=== PATIENT | male | born 1940 | race Caucasian/White ===

== ENCOUNTER 2016-03-06 11:14 | Inpatient (IN) | payer MEDICARE ==
[~2016-03-06] VITALS: Ht 177.8 cm; Wt 99.8 kg
[2016-03-06] MEDS ORDERED: ZOLPIDEM 5 MG TAB PO PRN (11:20)
[2016-03-06] MEDS ORDERED: GLUCAGON 1 MG VIAL IM PRN (11:20)
[2016-03-06] MEDS ORDERED: SODIUM CHLORIDE 0.9% 1,000 ML IV SCH ×2 (11:20→16:00)
[2016-03-06] MEDS ORDERED: ENOXAPARIN 40 MG/0.4 ML SYR SUBQ SCH (11:20)
[2016-03-06] MEDS: NEB-BUDESONIDE 0.5 MG INH SCH ×3 (11:20→17:27)
[2016-03-06] MEDS ORDERED: BISACODYL EC 5 MG TAB PO PRN (11:20)
[2016-03-06] MEDS ORDERED: ALPRAZOLAM 0.25 MG TAB PO PRN (11:20)
[2016-03-06] MEDS ORDERED: BISACODYL 10 MG SUPP RECTAL PRN (11:20)
[2016-03-06] MEDS ORDERED: ACETAMINOPHEN 325 MG TAB PO PRN (11:20)
[2016-03-06] MEDS ORDERED: DEXTROSE 50% SYRINGE 50 ML IV PRN (11:20)
[2016-03-06] MEDS ORDERED: SALINE FLUSH 10 ML FLUSH PRN (11:20)
[2016-03-06] MEDS ORDERED: NITROGLYCERIN SL 0.4 MG TAB SL SCH (14:05)
[2016-03-06] MEDS: ASPIRIN 81 MG CHEW TAB PO SCH (14:12)
[2016-03-06] MEDS: CHOLECALCIFEROL 1,000 UNITS TAB PO SCH (14:12)
[2016-03-06] MEDS: Ascorbic Acid 500 MG TAB PO SCH (14:12)
[2016-03-06] MEDS: amLODIPine 5 MG TAB PO SCH (14:12)
[2016-03-06] MEDS: FENOFIBRATE 145 MG TAB PO SCH (14:13)
[2016-03-06] MEDS: FLUTICASONE 0.05% NA BTL NARE EACH SCH (14:13)
[2016-03-06] MEDS: ENTRESTO PO SCH ×2 (14:13→21:35)
[2016-03-06 14:20] VITALS: BP_SYST 136; BP_SYST 142; RESP 18; TEMP 98.3; Ht 177.8 cm; Wt 99.8 kg
[2016-03-06] MEDS: CEFTRIAXONE 1 GM in SODIUM CHLORIDE 0.9% 50 ML IV SCH (14:58)
[2016-03-06] MEDS: METHYLPRED SOD SUCC 125 MG/2 ML VIAL IV SCH ×2 (14:59→21:34)
[2016-03-06] MEDS: DUONEB INH SCH ×3 (15:00→23:38)
[2016-03-06] MEDS: AZITHROMYCIN 500 MG in SODIUM CHLORIDE 0.9% 250 ML IV SCH (16:16)
[2016-03-06 17:41] VITALS: RESP 16
[2016-03-06 19:10] VITALS: BP_SYST 109; RESP 20; TEMP 98.5
[2016-03-06] MEDS: SALINE FLUSH 10 ML FLUSH SCH (21:34)
[2016-03-06] MEDS: MONTELUKAST 10 MG TAB PO SCH (21:35)
[2016-03-06] MEDS: Atorvastatin 20 MG TAB PO SCH (21:35)
[2016-03-06] MEDS: NEBIVOLOL 10 MG TAB PO SCH (21:35)
[2016-03-06] MEDS: CLOPIDOGREL 75 MG TAB PO SCH (21:35)
[2016-03-06 23:24] VITALS: BP_SYST 118; RESP 18; TEMP 97.8
[2016-03-07] VITALS (9 sets, daily range): BP systolic 104–126; RESP 18–20; TEMP 97.1–98.3
[2016-03-07] MEDS: DUONEB INH SCH ×6 (03:00→23:30)
[2016-03-07] MEDS: PANTOPRAZOLE 40 MG TAB PO SCH (06:16)
[2016-03-07] MEDS: SODIUM CHLORIDE 0.9% FLUSH BAG 500 ML IV SCH (06:16)
[2016-03-07] MEDS: NEB-BUDESONIDE 0.5 MG INH SCH ×2 (07:38→20:07)
[2016-03-07] MEDS: FLUTICASONE 0.05% NA BTL NARE EACH SCH (08:48)
[2016-03-07] MEDS: SALINE FLUSH 10 ML FLUSH SCH ×2 (08:49→20:59)
[2016-03-07] MEDS: METHYLPRED SOD SUCC 125 MG/2 ML VIAL IV SCH ×2 (08:49→20:57)
[2016-03-07] MEDS: CEFTRIAXONE 1 GM in SODIUM CHLORIDE 0.9% 50 ML IV SCH (08:49)
[2016-03-07] MEDS: KCL CR 8 MEQ TAB PO SCH (08:50)
[2016-03-07] MEDS: Furosemide 20 MG/2 ML VIAL IV SCH (08:50)
[2016-03-07] MEDS: TAMSULOSIN 0.4 MG CAP PO SCH (08:50)
[2016-03-07] MEDS: amLODIPine 5 MG TAB PO SCH (08:50)
[2016-03-07] MEDS: FENOFIBRATE 145 MG TAB PO SCH (08:51)
[2016-03-07] MEDS: ASPIRIN 81 MG CHEW TAB PO SCH (08:51)
[2016-03-07] MEDS: ENTRESTO PO SCH ×2 (08:51→20:58)
[2016-03-07] MEDS: CHOLECALCIFEROL 1,000 UNITS TAB PO SCH (08:51)
[2016-03-07] MEDS: SPIRONOLACTONE 25 MG TAB PO SCH (08:51)
[2016-03-07] MEDS: Ascorbic Acid 500 MG TAB PO SCH (08:52)
[2016-03-07] MEDS: AZITHROMYCIN 500 MG in SODIUM CHLORIDE 0.9% 250 ML IV SCH (09:47)
[2016-03-07] MEDS: MONTELUKAST 10 MG TAB PO SCH (20:58)
[2016-03-07] MEDS: NEBIVOLOL 10 MG TAB PO SCH (20:58)
[2016-03-07] MEDS: CLOPIDOGREL 75 MG TAB PO SCH (20:58)
[2016-03-07] MEDS: Atorvastatin 20 MG TAB PO SCH (20:58)
[2016-03-08] VITALS (10 sets, daily range): BP systolic 102–125; RESP 16–20; TEMP 97.2–98.2
[2016-03-08] MEDS: DUONEB INH SCH ×6 (02:57→22:53)
[2016-03-08] MEDS: PANTOPRAZOLE 40 MG TAB PO SCH (06:30)
[2016-03-08] MEDS: SODIUM CHLORIDE 0.9% FLUSH BAG 500 ML IV SCH (06:30)
[2016-03-08] MEDS: NEB-BUDESONIDE 0.5 MG INH SCH ×2 (07:48→19:08)
[2016-03-08] MEDS: METHYLPRED SOD SUCC 125 MG/2 ML VIAL IV SCH ×2 (08:46→20:11)
[2016-03-08] MEDS: CEFTRIAXONE 1 GM in SODIUM CHLORIDE 0.9% 50 ML IV SCH (08:46)
[2016-03-08] MEDS: Furosemide 20 MG/2 ML VIAL IV SCH (08:46)
[2016-03-08] MEDS: ENTRESTO PO SCH ×2 (08:47→20:09)
[2016-03-08] MEDS: SALINE FLUSH 10 ML FLUSH SCH ×2 (08:47→20:11)
[2016-03-08] MEDS: Ascorbic Acid 500 MG TAB PO SCH (08:47)
[2016-03-08] MEDS: ASPIRIN 81 MG CHEW TAB PO SCH (08:47)
[2016-03-08] MEDS: KCL CR 8 MEQ TAB PO SCH (08:47)
[2016-03-08] MEDS: FLUTICASONE 0.05% NA BTL NARE EACH SCH (08:47)
[2016-03-08] MEDS: FENOFIBRATE 145 MG TAB PO SCH (08:47)
[2016-03-08] MEDS: TAMSULOSIN 0.4 MG CAP PO SCH (08:48)
[2016-03-08] MEDS: amLODIPine 5 MG TAB PO SCH (08:48)
[2016-03-08] MEDS: SPIRONOLACTONE 25 MG TAB PO SCH (08:48)
[2016-03-08] MEDS: CHOLECALCIFEROL 1,000 UNITS TAB PO SCH (08:48)
[2016-03-08] MEDS: AZITHROMYCIN 500 MG in SODIUM CHLORIDE 0.9% 250 ML IV SCH (09:56)
[2016-03-08] MEDS: Atorvastatin 20 MG TAB PO SCH (20:09)
[2016-03-08] MEDS: MONTELUKAST 10 MG TAB PO SCH (20:09)
[2016-03-08] MEDS: CLOPIDOGREL 75 MG TAB PO SCH (20:09)
[2016-03-08] MEDS: NEBIVOLOL 10 MG TAB PO SCH (20:09)
[2016-03-09] VITALS (10 sets, daily range): BP systolic 90–126; RESP 18; TEMP 97.3–98.3
[2016-03-09] MEDS: DUONEB INH SCH ×6 (03:19→23:00)
[2016-03-09] MEDS: PANTOPRAZOLE 40 MG TAB PO SCH (06:02)
[2016-03-09] MEDS: SODIUM CHLORIDE 0.9% FLUSH BAG 500 ML IV SCH (06:02)
[2016-03-09] MEDS: NEB-BUDESONIDE 0.5 MG INH SCH ×2 (07:00→19:40)
[2016-03-09] MEDS: METHYLPRED SOD SUCC 125 MG/2 ML VIAL IV SCH (07:55)
[2016-03-09] MEDS: SALINE FLUSH 10 ML FLUSH SCH ×2 (07:55→20:45)
[2016-03-09] MEDS: Furosemide 20 MG/2 ML VIAL IV SCH (08:03)
[2016-03-09] MEDS: CEFTRIAXONE 1 GM in SODIUM CHLORIDE 0.9% 50 ML IV SCH (08:03)
[2016-03-09] MEDS: TAMSULOSIN 0.4 MG CAP PO SCH (08:06)
[2016-03-09] MEDS: ENTRESTO PO SCH ×2 (08:06→20:43)
[2016-03-09] MEDS: CHOLECALCIFEROL 1,000 UNITS TAB PO SCH (08:06)
[2016-03-09] MEDS: Ascorbic Acid 500 MG TAB PO SCH (08:06)
[2016-03-09] MEDS: FLUTICASONE 0.05% NA BTL NARE EACH SCH (08:06)
[2016-03-09] MEDS: SPIRONOLACTONE 25 MG TAB PO SCH (08:06)
[2016-03-09] MEDS: KCL CR 8 MEQ TAB PO SCH (08:07)
[2016-03-09] MEDS: amLODIPine 5 MG TAB PO SCH (08:07)
[2016-03-09] MEDS: ASPIRIN 81 MG CHEW TAB PO SCH (08:07)
[2016-03-09] MEDS: FENOFIBRATE 145 MG TAB PO SCH (08:07)
[2016-03-09] MEDS: AZITHROMYCIN 500 MG in SODIUM CHLORIDE 0.9% 250 ML IV SCH (09:04)
[2016-03-09] MEDS ORDERED: Furosemide 40 MG/4 ML VIAL IV ONE (09:40)
[2016-03-09] MEDS ORDERED: MISSING DOSE XX ONE (10:25)
[2016-03-09] MEDS ORDERED: KCL CR 10 MEQ CAP PO ONE (12:00)
[2016-03-09] MEDS ORDERED: PREDNISONE 20 MG TAB PO ONE (19:00)
[2016-03-09] MEDS: Atorvastatin 20 MG TAB PO SCH (20:43)
[2016-03-09] MEDS: NEBIVOLOL 10 MG TAB PO SCH (20:43)
[2016-03-09] MEDS: MONTELUKAST 10 MG TAB PO SCH (20:43)
[2016-03-09] MEDS: CLOPIDOGREL 75 MG TAB PO SCH (20:43)
[2016-03-10] MEDS: DUONEB INH SCH ×3 (02:27→11:00)
[2016-03-10 03:51] VITALS: BP_SYST 104; RESP 18; TEMP 98.6
[2016-03-10] MEDS: SODIUM CHLORIDE 0.9% FLUSH BAG 500 ML IV SCH (06:11)
[2016-03-10] MEDS: PANTOPRAZOLE 40 MG TAB PO SCH (06:11)
[2016-03-10 07:36] VITALS: BP_SYST 118; RESP 18; TEMP 97.7
[2016-03-10] MEDS: NEB-BUDESONIDE 0.5 MG INH SCH (07:53)
[2016-03-10] MEDS: CEFTRIAXONE 1 GM in SODIUM CHLORIDE 0.9% 50 ML IV SCH (08:01)
[2016-03-10] MEDS: FLUTICASONE 0.05% NA BTL NARE EACH SCH (08:02)
[2016-03-10] MEDS: SALINE FLUSH 10 ML FLUSH SCH (08:02)
[2016-03-10] MEDS: Furosemide 20 MG/2 ML VIAL IV SCH (08:02)
[2016-03-10] MEDS: ENTRESTO PO SCH (08:03)
[2016-03-10] MEDS: FENOFIBRATE 145 MG TAB PO SCH (08:03)
[2016-03-10] MEDS: amLODIPine 5 MG TAB PO SCH (08:03)
[2016-03-10] MEDS: SPIRONOLACTONE 25 MG TAB PO SCH (08:03)
[2016-03-10] MEDS: TAMSULOSIN 0.4 MG CAP PO SCH (08:03)
[2016-03-10] MEDS: KCL CR 8 MEQ TAB PO SCH (08:03)
[2016-03-10] MEDS: Ascorbic Acid 500 MG TAB PO SCH (08:04)
[2016-03-10] MEDS: CHOLECALCIFEROL 1,000 UNITS TAB PO SCH (08:04)
[2016-03-10] MEDS: ASPIRIN 81 MG CHEW TAB PO SCH (08:05)
[2016-03-10] MEDS ORDERED: PREDNISONE 20 MG TAB PO SCH (09:00)
[2016-03-10 11:03] VITALS: BP_SYST 115; BP_SYST 118; RESP 16; RESP 18; TEMP 97.7; TEMP 98.6
== END 2016-03-10 11:47 | disposition home or self-care (01) | DRG 191 ==
LOC: ENRESERVTM → ENRESERVDT → ENPENDDIS 13:08 → 3NT 13:08
PROVIDERS: ADMIT Internal Medicine; ATTEND Internal Medicine
CPT/HCPCS: 36415; 36600; 71020; 80048; 80053; 82803; 82947; 83735; 83880; 84439; 84443; 85025; 87071; 93005; 94640; 94799